=== PATIENT | male | born 1970 | race Caucasian/White ===

== ENCOUNTER 2019-07-05 22:29 | Emergency (ER) | payer BC, SELFPAY ==
--- NOTE | ~2019-07-05 | CT_ITS ---
EXAMINATION: CT abdomen pelvis wo con DATE: 07/05/2019 23:25 INDICATION: Left flank pain and nausea TECHNIQUE: Computed tomography (CT) of the abdomen and pelvis was performed without intravenous contr ast. The dose-length product was 1096.23 mGy-cm. Automated exposure control and iterative reconstruct ion technique were employed. COMPARISON: None. FINDINGS: Lung bases are unremarkable. Heart size normal. No significant pleural or pericardial effus ion. Bowel pattern is nonobstructive. No significant vascular abnormality. Small hiatal hernia. No ly mphadenopathy. 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 The liver, spleen, pancreas, adrenal glands and kidneys are unremarkable. No hydronephrosis. Bladder is unremarkable. No abnormal pelvic masses or fluid collections. Gallbladder is distended. Normal rhett endix. Mild lower lumbar spondylosis. IMPRESSION: 1. No acute abdominal abnormality. 2: Small hiatal hernia. 3: Mild infiltration of mesenteric fat with small associated lymph nodes consistent with sclerosing m esenteritis. Reviewed, dictated and finalized at location A. IMPRESSION: 1. No acute abdominal abnormality. 2: Small hiatal hernia. 3: Mild infiltration of mesenteric fat with small associated lymph nodes consis tent with sclerosing mesenteritis.
[2019-07-05 22:34] VITALS: BP 142/66; PULSE 66; RESP 22; TEMP 36.4; O2SAT 100
[2019-07-05 22:40] VITALS: BP 185/94; PULSE 90; RESP 20
--- NOTE | 2019-07-05 23:04 | ED.ABDPAIN ---
HPI - Abdominal Pain General Chief Complaint: Abdominal Pain Stated Complaint: abd pain Time Seen by Provider: 07/05/19 22:49 History of Present Illness HPI narrative: Patient is a 49-year-old male who presents ER with sudden onset left-sided abdominal pain. Unable to get comfortable. Associate with nausea. No fever/chills/sweats. Said urinary frequency but no dysuria or hematuria. Reports some discomfort earlier in the week on the left side as well that would radiate into the testicle. Has not had similar symptoms before. Related Data Allergies Allergy/AdvReac Type Severity Reaction Status Date / Time No Known Allergies Allergy Unknown Unverified 07/05/19 22:40 Review of Systems Review of Systems: All systems reviewed & are unremarkable except as noted in HPI and below Constitutional: Constitutional: Denies chills and Denies fever(s) Gastrointestinal: Gastrointestinal: Reports abdominal pain, Denies diarrhea, Reports nausea and Denies vomiting Genitourinary: Genitourinary: Denies hematuria, Denies dysuria, Reports testicular pain and Reports urinary frequency Musculoskeletal: Musculoskeletal: Denies back pain and Denies muscle cramps PMFSH Past Medical History Medical History (Updated 07/06/19 @ 01:36 by Duglas Vegas MD) Carpal tunnel syndrome Surgical History Surgical History (Updated 07/06/19 @ 01:35 by Duglas Vegas MD) No pertinent past surgical history Family History Family History (Updated 11/22/13 @ 07:13 by DOCTOR UNKNOWN) Sibling Depression Father Depression Social History Social History Smoking status: Never smoker Alcohol intake: current Gender identity (if verbalized by the patient): Male Exam Narrative: Exam Narrative: GENERAL: Uncomfortable-appearing, well-nourished, and in no acute distress. HEAD: Normocephalic, atraumatic. ENT: Mucous membranes moist. CHEST: Clear to auscultation. No respiratory distress. HEART: Regular rate and rhythm. Normal peripheral pulses. ABDOMEN: Soft, nontender, nondistended, no CVA tenderness. EXTREMITIES: Normal range of motion. No edema. NEURO: Alert and oriented x3. PSYCH: Normal mood and affect. Course Course Emergency Course: Improved significantly with Toradol more so than with morphine. Few red blood cells in urine. History and improvement with Toradol seem suspicious for recently passed kidney stone but no evidence on CT scan. Discharge home. Vital Signs Vital signs: Vital Signs Temperature 97.5 F L 07/05/19 22:34 Pulse Rate 66 07/05/19 22:34 Respiratory Rate 22 H 07/05/19 22:34 Blood Pressure 142/66 H 07/05/19 22:34 Pulse Oximetry 100 07/05/19 22:34 Temperature 97.5 F L 07/05/19 22:34 Pulse Rate 68 07/06/19 00:29 Respiratory Rate 17 07/06/19 00:29 Blood Pressure 137/73 07/06/19 00:29 Pulse Oximetry 94 07/06/19 00:29 MDM - Abdominal Pain Lab Data Result diagrams: 07/05/19 23:07 07/05/19 23:07 Labs: Lab Results 07/05/19 07/05/19 07/05/19 Range/Units 22:54 23:07 23:07 WBC Cancelled RBC Cancelled Hgb Cancelled Hct Cancelled MCV Cancelled MCH Cancelled MCHC Cancelled RDW Cancelled Plt Count Cancelled MPV Cancelled Immature Gran % (Auto) Cancelled Neut % (Auto) Cancelled Lymph % (Auto) Cancelled [place] % (Auto) Cancelled Eos % (Auto) Cancelled Baso % (Auto) Cancelled Lymph # (Auto) Cancelled [place] # (Auto) Cancelled Eos # (Auto) Cancelled Baso # (Auto) Cancelled Abs Immat Gran (auto) Cancelled Absolute Neuts (auto) Cancelled Absolute Nucleated RBC Cancelled Nucleated RBC % Cancelled % Immature Plt Fraction Cancelled Sodium 138 (137-145) mmol/L Potassium 3.6 (3.4-5.0) mmol/L Chloride 102 (98-107) mmol/L Carbon Dioxide 24 (22-30) mmol/L BUN 16 (9-20) mg/dL Creatinine 0.70 (0.7-1
[2019-07-05] MEDS: SODIUM CHLORIDE 0.9% IV 1,000 ML 999 ML IV CONT (23:09)
[2019-07-05] MEDS: MORPHINE SULFATE 4 MG/ML INJ IV PUSH (23:09)
[2019-07-05 23:13] LABS: Add Urine Microscopic? YES; Appearance Urine Clear (Clear); Bilirubin Urine Negative (Negative); Blood Urine Negative (Negative); Color Urine Yellow (Yellow); Glucose Urine UA Negative (Negative); Ketones Urine Negative (Negative); Leukocyte Esterase Ur Negative LEU/UL (Negative); Mucus Urine Rare /lpf; Nitrate Urine Negative (Negative); Protein Urine 1+ mg/dL (Negative); Squamous Epithelial Cell Urine Rare /hpf (Few); Urobilinogen Urine Negative mg/dL (<2.0); WBC Urine 0-3 /hpf
[2019-07-05 23:14] LABS: Basophils Percent Auto 0.2 % (0.2-1.2); Eosinophils Percent Auto 0.3 % (0-4.4); Hemoglobin 14.7 g/dL (14.0-18.0); Immature Granulocyte Absolute 0.05 K/mm3 (0.00-0.031); Immature Granulocyte Percent A 0.3 % (0-0.5); Lymphocytes Absolute Auto 1.37 K/mm3 (0.9-3.2); Lymphocytes Percent Auto 9.2 % (18.3-44.2); Mean Corpuscular HGB Conc 34.2 g/dl (32-36); Mean Corpuscular Hemoglobin 28.4 pg (26-34); Mean Corpuscular Volume 83.2 fl (80-100); Mean Platelet Volume 10.5 fl (7.4-10.4); Monocytes Absolute Auto 0.6 K/mm3 (0.1-0.6); Monocytes Percent Auto 4.3 % (2.6-8.5); Neutrophils Absolute Auto 12.7 K/mm3 (1.3-6.7); Neutrophils Percent Auto 85.7 % (45.5-73.1); Platelet Count Result 243 k/mm3 (150-375); Red Blood Count 5.17 M/mm3 (4.6-6.20); Red Cell Distribution Width 12.3 % (11.5-14.5); White Blood Count 14.8 K/mm3 (4.5-10.0)
[2019-07-05 23:28] LABS: Blood Urea Nitrogen 16 mg/dL (9-20); Calcium 9.2 mg/dL (8.4-10.2); Carbon Dioxide 24 mmol/L (22-30); Chloride 102 mmol/L (98-107); Estimated CRCL calculation 127 ml/min; Estimated Glomerular Filt Rate > 60; Glucose 142 mg/dL (75-110); Potassium 3.6 mmol/L (3.4-5.0); Sodium 138 mmol/L (137-145)
[2019-07-05] MEDS: KETOROLAC 30 MG/ML VIAL (*BKC) IV PUSH (23:47)
[2019-07-05] MEDS: ONDANSETRON INJ 4 MG/2 ML VIAL IV PUSH (23:47)
[2019-07-06 00:29] VITALS: BP 137/73; PULSE 68; RESP 17; O2SAT 94
[2019-07-06 01:57] VITALS: BP 142/76; PULSE 72; RESP 18; TEMP 36.7; O2SAT 97
== END 2019-07-06 01:59 | disposition home or self-care (01) ==
PROVIDERS: Emergency Provider Emergency Medicine; PCP Family Medicine
DX: R10.9 Unspecified abdominal pain (principal); K44.9 Diaphragmatic hernia without obstruction or gangrene; R93.5 Abnormal findings on diagnostic imaging of other abdominal regions, including retroperitoneum
CPT/HCPCS: 36415; 74176; 80048; 81001; 85025; 96361; 96374; 96375; 99284; J1885; J2270; J2405; J7030

== ENCOUNTER 2023-07-29 09:40 | Outpatient (CLI) | payer BC, SELFPAY ==
[2023-07-29 10:29] LABS: Alanine Aminotransferase 49 U/L (6-50); Albumin Level 4.7 g/dL (3.5-5.1); Alkaline Phosphatase 58 U/L (38-126); Anion Gap 8 mmol/L (4-12); Aspartate Amino Transferase 34 U/L (17-59); Bilirubin,Total 0.6 mg/dL (0.2-1.3); Blood Urea Nitrogen 15 mg/dL (9-20); Calcium 9.2 mg/dL (8.4-10.2); Carbon Dioxide 26 mmol/L (22-30); Chloride 102 mmol/L (98-107); Cholesterol 201 mg/dL (0-200); Estimated Glomerular Filt Rate > 60; Glucose 97 mg/dL (65-110); HDL Direct 50 mg/dL; Potassium 4.1 mmol/L (3.4-5.0); Sodium 136 mmol/L (137-145); Triglycerides 140 mg/dL (<150)
[2023-07-29 10:39] LABS: Basophils Percent Auto 0.4 % (0.2-1.2); Eosinophils Percent Auto 0.5 % (0-4.4); Hemoglobin 15.7 g/dL (14.0-18.0); Immature Granulocyte Absolute 0.02 K/mm3 (0.00-0.031); Immature Granulocyte Percent A 0.4 % (0-0.5); LDL Cholesterol Direct 123 mg/dL; Lymphocytes Absolute Auto 1.49 K/mm3 (0.9-3.2); Lymphocytes Percent Auto 26.9 % (18.3-44.2); Mean Corpuscular HGB Conc 34.1 g/dl (32-36); Mean Corpuscular Hemoglobin 29.3 pg (26-34); Mean Corpuscular Volume 85.8 fl (80-100); Mean Platelet Volume 10.4 fl (7.4-10.4); Monocytes Absolute Auto 0.5 K/mm3 (0.1-0.6); Monocytes Percent Auto 8.7 % (2.6-8.5); Neutrophils Absolute Auto 3.5 K/mm3 (1.3-6.7); Neutrophils Percent Auto 63.1 % (45.5-73.1); Platelet Count Result 225 k/mm3 (150-375); Red Blood Count 5.36 M/mm3 (4.6-6.20); Red Cell Distribution Width 12.4 % (11.5-14.5); Troponin I < 0.012 ng/mL (0.000-0.034); White Blood Count 5.5 K/mm3 (4.5-10.0)
[2023-07-29 11:16] LABS: Prostate Specific Antigen 0.5 ng/mL (< OR = 4.0)
== END 2023-07-29 09:41 | disposition home or self-care (01) ==
LOC: ANHLAB 09:42
PROVIDERS: PCP Family Medicine; Visit Provider Nurse Practitioner Adult Health
DX: I10 Essential (primary) hypertension (principal); Z13.29 Encounter for screening for other suspected endocrine disorder; Z13.220 Encounter for screening for lipoid disorders; Z12.5 Encounter for screening for malignant neoplasm of prostate
CPT/HCPCS: 36415; 80053; 80061; 84153; 84443; 84484; 85025; G0103

== ENCOUNTER 2023-07-29 13:53 | Emergency (ER) | payer BC, SELFPAY ==
[2023-07-29] VITALS (9 sets, daily range): BP systolic 168–189; BP diastolic 96–110; PULSE 56–67; RESP 14–18; TEMP 36.2–36.8; O2SAT 95–99
--- NOTE | ~2023-07-29 | XR_ITS ---
EXAMINATION: XR chest 2V DATE: 07/29/2023 15:26 INDICATION: Dizziness. TECHNIQUE: Frontal and lateral views of the chest were obtained. COMPARISON: Chest 2 views 07/01/2008 FINDINGS: A calcified right lung nodule and calcified right hilar lymph nodes are consistent with old granulomatous disease. No pleural effusion or pneumothorax. The heart size is normal. IMPRESSION: 1. No acute cardiopulmonary disease. Reviewed, dictated and finalized at location E.
--- NOTE | 2023-07-29 14:24 | ECG_ITS ---
SEE SCANNED COPY FOR CONFIRMED REPORT MTDD
--- NOTE | 2023-07-29 14:59 | ED.RECABL ---
HPI - Recheck/Abnormal Lab/Rx General Chief Complaint: Recheck/Abnormal Lab/Rx Stated Complaint: elevated bp Time Seen by Provider: 07/29/23 14:26 Source: patient Mode of arrival: ambulatory Limitations: no limitations History of Present Illness HPI narrative: Nilo is a 53-year-old male patient presenting to the emergency room today with complaints of high blood pressure and dizziness. He reports he went to his primary care doctor's office today was treated for a sinus infection and he was given a prescription for some lisinopril for hypertension. They told him if he felt any worse he should come in to be evaluated. He reports that he did take a dose of the lisinopril this morning. Started to feel lightheaded this afternoon and recheck his blood pressure and was in the 160s to 170 systolic and over 120 diastolic. This prompted him to come into the emergency room for evaluation. He denies any chest pain or associated shortness of breath. Did start antibiotics for the sinus infection. States he was taking Mucinex for his symptoms prior to seeing his primary care today. He denies any visual changes or headache. Related Data Allergies Allergy/AdvReac Type Severity Reaction Status Date / Time No Known Allergies Allergy Unknown Verified 07/29/23 14:02 Review of Systems Review of Systems: Pertinent positives per HPI. Patient denies any fever, chills, rash, headache, visual changes, cough, runny nose, sore throat, shortness of breath, chest pain, palpitations, nausea, vomiting, diarrhea, constipation, abdominal pain, or any urinary issues. PMFSH Past Medical History Medical History (Updated 07/29/23 @ 16:56 by Diego Adkins APRN) BMI 32.0-32.9,adult Carpal tunnel syndrome Hypertension Pain of left arm Screening for lipid disorders Screening for prostate cancer Screening for thyroid disorder Sinusitis Wheezing Surgical History Surgical History History of surgery on lower extremity No pertinent past surgical history Family History Family History Sibling Depression Crohn's disease Father Depression COPD (chronic obstructive pulmonary disease) Blind Mother Cancer ovarian Social History Social History Smoking status: Former smoker Second hand tobacco smoke exposure: Yes Alcohol intake: current Substance use: never Substance use type: does not use Do You Feel Safe in your Home?: Yes Lack of Transportation: No Lack of Food: Never True Current Housing: I Have Housing Concerned About Future Housing: No Difficulty Paying Gas/Electric Bills: No Difficulty Paying for Meds: No Currently Unemployed: No Education: Bachelor's Degree Difficulty w/ Childcare or Family Care: No Living arrangements: with family Occupation/Education: occupation Additional occupation/education comments: [employer] Gender identity (if verbalized by the patient): Male Comments At the time of my signature, I reviewed and agree with the nursing past medical, surgical, social, and family history. There is no relevant family history pertinent to the patient complaint. Exam Narrative: General: Well-developed, well nourished, in no apparent distress Head: Normocephalic, atraumatic Eyes: Pupils equally round and reactive to light bilaterally, EOM intact, sclera and conjunctive clear, no discharge, lids normal Ears: TMs intact and congested, ear canals clear, no drainage, grossly hearing normal. Nose: Nares patent, no discharge, no inflammation, no sinus tenderness. Mouth: Oropharynx without lesions or masses, good dentition, MMM. Neck: Supple, trachea midline, no enlargement of anterior or posterior cervical nodes, no thyroid masses or goiter palpable. Cardio: Regular rate and rh
[2023-07-29 15:01] LABS: Partial Thromboplastin Time 26.8 Seconds (22.3-36.8); Prothrombin Time 13.7 Seconds (11.1-14.7)
[2023-07-29 15:14] LABS: Troponin I < 0.012 ng/mL (0.000-0.034)
[2023-07-29] MEDS: cloNIDine HCL 0.1 MG TABLET PO (15:16)
== END 2023-07-29 17:03 | disposition home or self-care (01) ==
PROVIDERS: Emergency Medicine; Emergency Provider Nurse Practitioner Family; PCP Family Medicine
DX: R42 Dizziness and giddiness (principal); I10 Essential (primary) hypertension; Z87.891 Personal history of nicotine dependence
CPT/HCPCS: 36415; 71046; 84484; 85610; 85730; 93005; 99284; A9270

== ENCOUNTER 2023-09-14 13:43 | Outpatient (CLI) | payer BC, SELFPAY ==
--- NOTE | 2023-09-14 14:30 | NEURO_ITS ---
Impression: # Complains of numbness of hands. Non-Diabetic. # Carpal Tunnel Syndrome, right more than left. # Normal needle/EMG exam. # Clinical correlation recommended. Nerve Conduction Studies Anti Sensory Summary Table Stim Site NR Peak (ms) P-T Amp (?V) Site1 Site2 Delta-P (ms) Dist (cm) Gus (m/s) Left Median Anti Sensory (2-3nd Digit) Wrist 3.3 27.7 Wrist 2-3nd Digit 3.3 14.0 42 Wrist 3.5 39.2 Wrist 2-3nd Digit 3.3 14.0 42 Right Median Anti Sensory (2-3nd Digit) Wrist 4.0 8.2 Wrist 2-3nd Digit 4.0 14.0 35 Wrist 4.0 16.9 Wrist 2-3nd Digit 4.0 14.0 35 Left Radial Anti Sensory (Base 1st Digit) Wrist 2.0 23.8 Wrist Base 1st Digit 2.0 0.0 Right Radial Anti Sensory (Base 1st Digit) Wrist 2.1 17.5 Wrist Base 1st Digit 2.1 0.0 Left Ulnar Anti Sensory (5th Digit) Wrist 2.5 34.1 Wrist 5th Digit 2.5 14.0 56 Right Ulnar Anti Sensory (5th Digit) Wrist 2.4 19.0 Wrist 5th Digit 2.4 14.0 58 Motor Summary Table Stim Site NR Onset (ms) O-P Amp (mV) Site1 Site2 Delta-0 (ms) Dist (cm) Gus (m/s) Left Median Motor (Abd Poll Brev) Wrist 3.4 1.9 Elbow Wrist 5.0 30.0 60 Elbow 8.4 0.9 Right Median Motor (Abd Poll Brev) Wrist 4.4 3.5 Elbow Wrist 5.1 30.0 59 Elbow 9.5 3.8 Left Ulnar Motor (Abd Dig Minimi) Wrist 2.5 9.2 A Elbow Wrist 5.5 32.0 58 A Elbow 8.0 8.1 Right Ulnar Motor (Abd Dig Minimi) Wrist 2.7 7.8 A Elbow Wrist 5.7 33.0 58 A Elbow 8.4 6.7 F Wave Studies NR F-Lat (ms) L-R F-Lat (ms) Left Median (Mrkrs) (Abd Poll Brev) 29.63 0.78 Right Median (Mrkrs) (Abd Poll Brev) 30.41 0.78 Left Ulnar (Mrkrs) (Abd Dig Min) 29.22 0.16 Right Ulnar (Mrkrs) (Abd Dig Min) 29.06 0.16 EMG Side Muscle Nerve Root Ins Act Fibs Amp Dur Recrt Comment Right 1stDorInt Ulnar C8-T1 Nml Nml Nml Nml Nml Right Ext Indicis Radial (Post Int) C7-8 Nml Nml Nml Nml Nml Right Ext Digitorum Radial (Post Int) C7-8 Nml Nml Nml Nml Nml Right BrachioRad Radial C5-6 Nml Nml Nml Nml Nml Right PronatorTeres Median C6-7 Nml Nml Nml Nml Nml Right Abd Poll Brev Median C8-T1 Nml Nml Nml Nml Nml Right ABD Dig Min Ulnar C8-T1 Nml Nml Nml Nml Nml Left 1stDorInt Ulnar C8-T1 Nml Nml Nml Nml Nml Left Ext Indicis Radial (Post Int) C7-8 Nml Nml Nml Nml Nml Left Ext Digitorum Radial (Post Int) C7-8 Nml Nml Nml Nml Nml Left BrachioRad Radial C5-6 Nml Nml Nml Nml Nml Left PronatorTeres Median C6-7 Nml Nml Nml Nml Nml Left Abd Poll Brev Median C8-T1 Nml Nml Nml Nml Nml Left ABD Dig Min Ulnar C8-T1 Nml Nml Nml Nml Nml MTDD
== END 2023-09-14 13:44 | disposition home or self-care (01) ==
PROVIDERS: PCP Family Medicine; Visit Provider Nurse Practitioner Adult Health
DX: G56.03 Carpal tunnel syndrome, bilateral upper limbs (principal); G62.9 Polyneuropathy, unspecified
CPT/HCPCS: 95886; 95911

== ENCOUNTER 2024-01-12 00:40 | Day surgery (SDC) | payer BC, SELFPAY ==
[2024-01-02 15:07] VITALS: BMI 30.7
--- NOTE | 2024-01-02 15:10 | SUR.PREOP ---
Addendum entered by Michelle Gonzalez RN 01/03/24 08:23: Pt aware nothing to eat or drink after midnight, except for a small sip of water with medicine. Original Note: Report to the Outpatient Waiting Room, entrance under the green pavilion located off [facility], at time 0630 on date 01/12/24. Planned Procedure Time: 0830.? Time changes happen often and if your time is changed the preop area will call you the afternoon before. - You and your visitor will be asked to self-screen and do not enter if you have any COVID symptoms. Please call surgeon if you need to reschedule. - A mask is optional within the hospital at this time. Patients may have clear liquids (water, carbonated beverages, clear teas, apple juice) until 3 hours prior to surgery with a maximum of 20 ounces. - No food from midnight until time of surgery and no smoking - Infants may have breast milk until 4 hours before surgery, infant formula 6 hours prior to surgery. - Children will be allowed to drink immediately following surgery.? If applicable, please bring a bottle or sippy cup to assist with drinking. Juice, water, soda, and popsicles are readily available.? For infants on formula, please bring formula the day of surgery.? Pacifiers are allowed. Take only the following medications with a SIP of water on the morning of surgery: amlodipine DO NOT STOP ANY OF YOUR OTHER PRESCRIPTION MEDICATIONS PRIOR TO SURGERY EXCEPT THE FOLLOWING Medications to discontinue per physician n/a Date to take last dose Please no make-up, nail indonesian, hairspray, perfume, deodorant, or body powder the day of surgery.? No jewelry (including any body piercings) or valuables the day of surgery, leave them at home.? Please take a shower or bath the night before, or the morning of, surgery with an antibacterial soap.? Wear comfortable, loose fitting clothing.? Children are encouraged to wear pajamas. - Jewelry must be removed prior to entering the operating room.? Rings and piercings that are not removed may be cut off. - The hospital will not accept responsibility for valuables.? - Please leave all valuables, including medications, at home the day of surgery. If you are going home after surgery, a licensed emergency vehicle driver must drive you home.? - NO public transportation without another adult if you receive anesthesia. - We recommend that an adult stay with you for 24 hours following discharge. - We also recommend that you do not drive, make important decision, drink alcoholic beverages, or take any drugs that were not prescribed by your health care provider for at least 24 hours after your discharge time. For Pediatric surgeries, we recommend two adults accompany the child home. Follow any additional instructions given to you from your surgeon. Telephone instructions given to __patient___and asked if any additional questions and then verbalized understanding. Patient advised to call surgeon office or pre surgery nurse liaison [phone] if any additional questions.
--- NOTE | 2024-01-11 17:54 | WPDANESEPP ---
Anes - Eval Pre Procedure Procedure: Operation Date: 01/12/24 07:30 Proposed Procedures p Right Endoscopic Carpal Tunnel Release, Possible Open - Juliane Lyons MD Date/Time: 01/11/24 17:54 Pre Op Diagnosis: right carpal tunnel syndrome Patient Data Age: 53 Gender: M Height: 1.8 m Weight: 99.79 kg Allergies Allergy/AdvReac Type Severity Reaction Status Date / Time No Known Allergies Allergy Unknown Verified 12/12/23 14:03 Home Medications Medication Instructions Recorded Confirmed Type amlodipine 5 mg tablet 5 mg PO BID #60 tabs 09/27/23 01/02/24 Rx Patient hx anesthesia problems: none Family hx anesthesia problems: none Results Review: All pre-operative results and documents have been reviewed as part of the pre-operative evaluation. [facility] Past Medical History Medical History Anxiety Carpal tunnel syndrome Carpal tunnel syndrome, bilateral Hypertension Pain of left arm Screening for colon cancer Screening for lipid disorders Screening for prostate cancer Screening for thyroid disorder Sinusitis Wheezing Surgical History Surgical History History of surgery on lower extremity No pertinent past surgical history Family History Family History Sibling Depression Crohn's disease Father Depression COPD (chronic obstructive pulmonary disease) Blind Mother Cancer ovarian Social History Social History Smoking status: Never smoker Second hand tobacco smoke exposure: Yes Alcohol intake: current Drinks per week: 5 Substance use: never Substance use type: does not use Do You Feel Safe in your Home?: Yes Lack of Transportation: No Lack of Food: Never True Current Housing: I Have Housing Concerned About Future Housing: No Difficulty Paying Gas/Electric Bills: No Difficulty Paying for Meds: No Currently Unemployed: No Education: Bachelor's Degree Difficulty w/ Childcare or Family Care: No Living arrangements: with family Occupation/Education: occupation Additional occupation/education comments: [employer] Gender identity (if verbalized by the patient): Male Spiritual care concerns: No Exam Day of Procedure 01/11/24 17:54 Patient weight: overweight
[2024-01-12 06:20] VITALS: BP 162/101; PULSE 68; RESP 16; TEMP 36.2; O2SAT 98
[2024-01-12 06:22] VITALS: BMI 31.5
--- NOTE | 2024-01-12 06:34 | P.PNAN_ITS ---
Anes - Eval Final PreProcedure Day of Procedure 01/12/24 06:34 Patient weight: obese Heart: regular rate and rhythm Lungs: clear to auscultation Airway: Mallampati scale class II Neurological: alert and oriented Last oral intake: >/= 8 hours ASA classification: II Emergent: no Anesthetic plan: proceed Anesthesia type and monitoring: general GIVS and standard monitoring Results Review: All pre-operative results and documents have been reviewed as part of the pre- operative evaluation. Informed Consent: The patient's anesthetic plan and its attendant risks and benefits were discussed with the patient/family/POA. Questions were solicited and answers provided to the satisfaction of the patient/family/POA.
--- NOTE | 2024-01-12 06:55 | PM.HPGS ---
History of Present Illness History of Present Illness Chief complaint: right carpal tunnel syndrome Narrative: Patient seen and examined in pre-operative holding area. No interval change in medical history or symptoms. Patient recalls previous discussion of benefits and alternatives to procedure. Continues to desire to proceed with right endoscopic possible open carpal tunnel release . Reviewed procedure, post-op expectations and risks including but not limited to bleeding, infection, injury to tendon/nerve/vessel, decreased hand function, stiffness, RSD, no change or worsening of symptoms. I discussed the possible use of assistants and their participation in the case. Patient stated understanding and signed the consent form wishing to proceed. Review of Systems Review of Systems: All systems reviewed & are unremarkable except as noted in HPI and below PMFSH Past Medical History Medical History Anxiety Carpal tunnel syndrome Carpal tunnel syndrome, bilateral Hypertension Pain of left arm Screening for colon cancer Screening for lipid disorders Screening for prostate cancer Screening for thyroid disorder Sinusitis Wheezing Surgical History Surgical History History of surgery on lower extremity No pertinent past surgical history Family History Family History Sibling Depression Crohn's disease Father Depression COPD (chronic obstructive pulmonary disease) Blind Mother Cancer ovarian Social History Social History Smoking status: Never smoker Second hand tobacco smoke exposure: Yes Alcohol intake: current Drinks per week: 5 Substance use: never Substance use type: does not use Do You Feel Safe in your Home?: Yes Lack of Transportation: No Lack of Food: Never True Current Housing: I Have Housing Concerned About Future Housing: No Difficulty Paying Gas/Electric Bills: No Difficulty Paying for Meds: No Currently Unemployed: No Education: Bachelor's Degree Difficulty w/ Childcare or Family Care: No Living arrangements: with family Occupation/Education: occupation Additional occupation/education comments: [employer] Gender identity (if verbalized by the patient): Male Spiritual care concerns: No Meds Home Medications and Allergies Home Medications Medication Instructions Recorded Confirmed Type amlodipine 5 mg tablet 5 mg PO BID #60 tabs 09/27/23 01/12/24 Rx tramadol 50 mg tablet 50 mg PO Q6H PRN pain #12 tabs 01/12/24 Rx Allergies Allergy/AdvReac Type Severity Reaction Status Date / Time No Known Allergies Allergy Unknown Verified 01/12/24 06:19 Vital Signs Vital Signs - 24 hr 01/12/24 06:20 Temperature 36.2 C L Pulse Rate 68 Respiratory Rate 16 Blood Pressure 162/101 H Pulse Oximetry 98 Oxygen Delivery Room Air Exam Narrative: unchnaged Assessment and Plan Assessment and plan (1) Carpal tunnel syndrome, bilateral: Code(s): G56.03 - Carpal tunnel syndrome, bilateral upper limbs Status: Acute Assessment and Plan: cont as above
--- NOTE | 2024-01-12 06:56 | W.PM.PROC2 ---
Procedure Note - Detailed Date of Procedure 01/12/24 Pre-op Diagnosis right carpal tunnel syndrome Post-op Diagnosis Same Procedure Performed right ectr Surgeon Juliane Lyons MD Optomechanical Technician sophia houser pa-c Anesthesia MAC Description of Procedure INFORMED CONSENT: The patient was seen and examined and marked in the pre-op area.? The patient signed the consent form. PROCEDURE IN DETAIL:The patient taken back to OR on the stretcher in supine position. Time out performed with anesthesia, surgeon and staff agreeing on patient's name site and surgery to be performed SCDs were placed on the lower extremities and inflated. A tourniquet was placed on {right} upper extremity and antibiotics given IV After anesthesia administered sedation I injected {5}cc 1%lido with epi and 0.5% marcaine plain at the operative site The?{right upper extremity}?was prepped and draped in sterile fashion the??{right upper extremity} was? exsanguinated with Esmarch bandage and tourniquet inflated to 250mmHg I made a transverse incision in the {right} volar distal wrist crease through skin and dermis with 15 blade scalpel.? Littler scissors spread down to antebrachial fascia. A small incision was made in antebrachial fascia allowing access to Carpal tunnel. I proceeded with sequential dilation staying in line with the ring finger and hugging the hook of the hamate.? I then used the synovial elevator to free any adhesions from the underside of the transverse carpal ligament. Next I was able to insert the [employer] endoscopic carpal tunnel device with direct visualization of the transverse fibers on the monitor and proceeded with complete segmental retrograde release of the ligament in its entirety.? I irrigated with normal saline and closed with 4-0 monocryl for dermis and subcuticular closure. A dressing of Dermabond, 4x4, fortunato, and a volar splint was applied for patient safety, security, and comfort and secured with an janiya bandage after the tourniquet was let down noting the hand was warm and well perfused. The patient was then awaken from anesthesia and transferred to the recovery room in stable condition.? Complications - none EBL- 0cc Disposition - home in stable conditions Sophia Houser PA-C was essential for positioning, retraction, closure and dressing placement [facility] Billing Surgery - Charge Forward: Surgery Billing ([id number] for sophia)
[2024-01-12] MEDS: LACTATED RINGERS 1,000 ML 30 ML IV CONT (07:12)
[2024-01-12] MEDS: ceFAZolin 2 GM/D5W 50 ML 2 GM/50 ML BAG IVPB (07:22)
[2024-01-12] MEDS: LIDO 1%/EPINEPHRINE 1:100,000 20 ML VIAL 5 ML INFILTRATE (07:40)
[2024-01-12 07:47] VITALS: BP 127/71; PULSE 68; RESP 20
[2024-01-12 08:15] VITALS: BP 132/90; PULSE 69; RESP 20
[2024-01-12 08:45] VITALS: BP 142/91; PULSE 54; RESP 20
== END 2024-01-12 08:50 | disposition home or self-care (01) ==
PROVIDERS: PCP Family Medicine; Visit Provider Plastic Surgery
PROC: 01N54ZZ Release Median Nerve, Percutaneous Endoscopic Approach (ICD-10-PCS; CPT 29848; principal; 2024-01-12 07:30)
DX: G56.01 Carpal tunnel syndrome, right upper limb (principal); I10 Essential (primary) hypertension; F41.9 Anxiety disorder, unspecified; E66.9 Obesity, unspecified; Z68.31 Body mass index [BMI] 31.0-31.9, adult; Z79.891 Long term (current) use of opiate analgesic; Z98.890 Other specified postprocedural states; Z80.41 Family history of malignant neoplasm of ovary
CPT/HCPCS: 29848; J0690; J2003; J2004; J2250; J2405; J2704; J3010; J7120

== ENCOUNTER 2024-02-15 01:21 | Day surgery (SDC) | payer BC, SELFPAY ==
[2024-02-13 15:42] VITALS: BMI 32.1
--- NOTE | 2024-02-13 15:45 | PC.NURSE ---
Report to the Outpatient Waiting Room, entrance under the green pavilion located off [facility], at time ___10:45am____ on date _02/15/24 . Planned Procedure Time: ___12:45pm .? Time changes happen often and if your time is changed the preop area will call you the afternoon before. - You and your visitor will be asked to self-screen and do not enter if you have any COVID symptoms. Please call surgeon if you need to reschedule. - A mask is optional within the hospital at this time. Patients may have No food or drink from midnight until time of surgery and no smoking. This includes no chewing gum, candy or mints. - Take only the following medications with a SIP of water on the morning of surgery: ___Amlodipine and Metoprolol DO NOT STOP ANY OF YOUR OTHER PRESCRIPTION MEDICATIONS PRIOR TO SURGERY EXCEPT THE FOLLOWING Medications to discontinue per physician None Date to take last dose None Please no make-up, nail vincentian, hairspray, perfume, deodorant, or body powder the day of surgery.? No jewelry (including any body piercings) or valuables the day of surgery, leave them at home.? Please take a shower or bath the night before, or the morning of, surgery with an antibacterial soap.? Wear comfortable, loose fitting clothing.? - Jewelry must be removed prior to entering the operating room.? Rings and piercings that are not removed may be cut off. - The hospital will not accept responsibility for valuables.? - Please leave all valuables, including medications, at home the day of surgery. If you are going home after surgery, a licensed tier truck driver must drive you home.? - NO public transportation without another adult if you receive anesthesia. - We recommend that an adult stay with you for 24 hours following discharge. - We also recommend that you do not drive, make important decision, drink alcoholic beverages, or take any drugs that were not prescribed by your health care provider for at least 24 hours after your discharge time. Follow any additional instructions given to you from your surgeon. Telephone instructions given to __Patient and asked if any additional questions and then verbalized understanding. Patient advised to call surgeon office or pre surgery nurse liaison [phone] if any additional questions.
--- NOTE | 2024-02-15 06:57 | WPDHPUPDATE1 ---
History and Physical Update Update Date/Time: 02/15/24 06:57 Patient seen and examined in pre-operative holding area. No interval change in medical history or symptoms. Patient recalls previous discussion of benefits and alternatives to procedure. Continues to desire to proceed with left endoscopic possible open carpal tunnel release . Reviewed procedure, post-op expectations and risks including but not limited to bleeding, infection, injury to tendon/nerve/vessel, decreased hand function, stiffness, RSD, no change or worsening of symptoms. I discussed the possible use of assistants and their participation in the case. Patient stated understanding and signed the consent form wishing to proceed.
--- NOTE | 2024-02-15 06:57 | W.PM.PROC2 ---
Procedure Note - Detailed Date of Procedure 02/15/24 Pre-op Diagnosis left carpal tunnel syndrome Post-op Diagnosis Same Procedure Performed left ectr Surgeon Juliane Lyons MD [employer] sophia houser pa-c Anesthesia MAC Description of Procedure INFORMED CONSENT: The patient was seen and examined and marked in the pre-op area.? The patient signed the consent form. PROCEDURE IN DETAIL:The patient taken back to OR on the stretcher in supine position. Time out performed with anesthesia, surgeon and staff agreeing on patient's name site and surgery to be performed SCDs were placed on the lower extremities and inflated. A tourniquet was placed on {left} upper extremity and antibiotics given IV After anesthesia administered sedation I injected {5}cc 1%lido with epi and 0.5% marcaine plain at the operative site The?{left upper extremity}?was prepped and draped in sterile fashion the??{left upper extremity} was? exsanguinated with Esmarch bandage and tourniquet inflated to 250mmHg I made a transverse incision in the {left} volar distal wrist crease through skin and dermis with 15 blade scalpel.? Littler scissors spread down to antebrachial fascia. A small incision was made in antebrachial fascia allowing access to Carpal tunnel. I proceeded with sequential dilation staying in line with the ring finger and hugging the hook of the hamate.? I then used the synovial elevator to free any adhesions from the underside of the transverse carpal ligament. Next I was able to insert the Microaire endoscopic carpal tunnel device with direct visualization of the transverse fibers on the monitor and proceeded with complete segmental retrograde release of the ligament in its entirety.? I irrigated with normal saline and closed with 4-0 monocryl for dermis and subcuticular closure. A dressing of Dermabond, 4x4, fortunato, and a volar splint was applied for patient safety, security, and comfort and secured with an janiya bandage after the tourniquet was let down noting the hand was warm and well perfused. The patient was then awaken from anesthesia and transferred to the recovery room in stable condition.? Complications - none EBL- 0cc Disposition - home in stable conditions sophia Houser PA-C was essential for positioning, retraction, closure and dressing placement [facility] Billing Surgery - Charge Forward: Surgery Billing ([id number] for sophia)
[2024-02-15 09:05] VITALS: BP 175/94; PULSE 52; RESP 18; TEMP 36.2; O2SAT 100
[2024-02-15 09:40] VITALS: BMI 31.5
[2024-02-15] MEDS: LACTATED RINGERS 1,000 ML 30 ML IV CONT (09:43)
--- NOTE | 2024-02-15 09:46 | P.PNAN_ITS ---
Anes - Initial Pre Proc Eval Procedure: Operation Date: 02/15/24 12:00 Proposed Procedures p Left Endoscopic Carpal Tunnel Release, Possible Open - Juliane Lyons MD Date/Time: 02/15/24 09:46 Surgeon: Juliane Lyons MD Pre Op Diagnosis: left carpal tunnel syndrome Patient Data Age: 53 Gender: M Height: 1.8 m Weight: 102.6 kg Last Vital Signs Temp 97.2 F L 02/15/24 09:05 Pulse 52 L 02/15/24 09:05 Resp 18 02/15/24 09:05 BP 175/94 H 02/15/24 09:05 Pulse Ox 100 02/15/24 09:05 O2 Del Method Room Air 02/15/24 09:05 Allergies Allergy/AdvReac Type Severity Reaction Status Date / Time No Known Allergies Allergy Unknown Verified 02/15/24 09:27 Home Medications Medication Instructions Recorded Confirmed Type amlodipine 5 mg tablet 5 mg PO BID #60 tabs 09/27/23 02/14/24 Rx metoprolol succinate 50 mg 50 mg PO DAILY 02/13/24 02/15/24 History tablet,extended release 24 hr Patient hx anesthesia problems: none Family hx anesthesia problems: none Results Review: All pre-operative results and documents have been reviewed as part of the pre- operative evaluation. [facility] Past Medical History Medical History Anxiety Carpal tunnel syndrome Carpal tunnel syndrome, bilateral Hypertension Pain of left arm Screening for colon cancer Screening for lipid disorders Screening for prostate cancer Screening for thyroid disorder Sinusitis Wheezing Surgical History Surgical History History of surgery on lower extremity No pertinent past surgical history Family History Family History Sibling Depression Crohn's disease Father Depression COPD (chronic obstructive pulmonary disease) Blind Mother Cancer ovarian Social History Social History Smoking packs per day: 1 Smoking cigarettes per day: 20.0 Years smoked: 6 Smoking pack-years: 6.00 Smoking status: Former smoker Second hand tobacco smoke exposure: Yes Smoking end date: 03/28/94 Alcohol intake: current Drinks per week: 2 Alcohol use details: Beer Substance use: never Substance use type: does not use Do You Feel Safe in your Home?: Yes Lack of Transportation: No Lack of Food: Never True Current Housing: I Have Housing Concerned About Future Housing: No Difficulty Paying Gas/Electric Bills: No Difficulty Paying for Meds: No Currently Unemployed: No Education: Bachelor's Degree Difficulty w/ Childcare or Family Care: No Living arrangements: with family Additional living arrangements comments: Occupation/Education: occupation Additional occupation/education comments: [employer] Gender identity (if verbalized by the patient): Male Spiritual care concerns: No Anes - Eval Final PreProcedure Day of Procedure 02/15/24 09:46 Patient weight: obese Heart: regular rate and rhythm Lungs: clear to auscultation Airway: Mallampati scale class II Neurological: alert and oriented Last oral intake: >/= 8 hours ASA classification: II Emergent: no Anesthetic plan: proceed Anesthesia type and monitoring: general GIVS and standard monitoring Results Review: All pre-operative results and documents have been reviewed as part of the pre- operative evaluation. HTN. Informed Consent: The patient's anesthetic plan and its attendant risks and benefits were discussed with the patient/family/POA. Questions were solicited and answers provided to the satisfaction of the patient/family/POA.
[2024-02-15] MEDS: ceFAZolin SODIUM 1 GM VIAL 2 GM IV PUSH (10:08)
[2024-02-15] MEDS: BUPivacaine HCL 0.5% PF 30 ML VIAL 5 ML INFILTRATE (10:09)
[2024-02-15] MEDS: LIDO 1%/EPINEPHRINE 1:100,000 20 ML VIAL 10 ML INFILTRATE (10:09)
[2024-02-15 10:26] VITALS: BP 106/66; PULSE 56; RESP 16; O2SAT 95
[2024-02-15 10:56] VITALS: BP 122/79; PULSE 47; RESP 16
--- NOTE | 2024-02-15 11:23 | SUR.PHASEII ---
1110- patient dressed, ready for dc, waiting on ride.
== END 2024-02-15 11:23 | disposition home or self-care (01) ==
PROVIDERS: PCP Family Medicine; Visit Provider Plastic Surgery
PROC: 01N54ZZ Release Median Nerve, Percutaneous Endoscopic Approach (ICD-10-PCS; CPT 29848; principal; 2024-02-15 12:00)
DX: G56.02 Carpal tunnel syndrome, left upper limb (principal); I10 Essential (primary) hypertension; Z87.891 Personal history of nicotine dependence; E66.9 Obesity, unspecified; Z68.31 Body mass index [BMI] 31.0-31.9, adult
CPT/HCPCS: 29848; A9270; J0690; J2004; J2250; J3010; J7120

== ENCOUNTER 2024-06-28 00:39 | Day surgery (SDC) | payer BC, SELFPAY ==
[2024-02-13 14:55] VITALS: BMI 32.1
[2024-04-06 11:48] VITALS: BMI 30.7
[2024-06-20 10:08] VITALS: BMI 30.7
[2024-06-28 07:21] VITALS: BP 131/88; PULSE 64; RESP 16; TEMP 36.1; O2SAT 99; BMI 31.8
[2024-06-28] MEDS: LACTATED RINGERS 1,000 ML 150 ML IV CONT (07:30)
--- NOTE | 2024-06-28 07:59 | WPDANESEPPF ---
Anes - Initial Pre Proc Eval Procedure: Operation Date: 06/28/24 08:30 Proposed Procedures p Screening Colonoscopy - Kameron Mendoza MD Date/Time: 06/28/24 07:59 Surgeon: Kameron Mendoza MD Pre Op Diagnosis: Neoplasm screening Patient Data Age: 54 Gender: M Height: 1.8 m Weight: 103.7 kg Last Vital Signs Temp 96.9 F L 06/28/24 07:21 Pulse 64 06/28/24 07:21 Resp 16 06/28/24 07:21 BP 131/88 06/28/24 07:21 Pulse Ox 99 06/28/24 07:21 O2 Del Method Room Air 06/28/24 07:21 Allergies Allergy/AdvReac Type Severity Reaction Status Date / Time No Known Allergies Allergy Unknown Verified 06/28/24 07:18 Home Medications ?Medication ?Instructions ?Recorded ?Confirmed ?Type amlodipine 5 mg tablet 5 mg PO BID #60 tabs 09/27/23 06/28/24 Rx metoprolol succinate 50 mg 50 mg PO DAILY 02/13/24 06/28/24 History tablet,extended release 24 hr Patient hx anesthesia problems: none Family hx anesthesia problems: none Results Review: All pre-operative results and documents have been reviewed as part of the pre-operative evaluation. [facility] Past Medical History Medical History Anxiety Carpal tunnel syndrome Carpal tunnel syndrome, bilateral Hypertension Pain of left arm Screening for colon cancer Screening for lipid disorders Screening for prostate cancer Screening for thyroid disorder Sinusitis Wheezing Surgical History Surgical History History of surgery on lower extremity No pertinent past surgical history Family History Family History Sibling Depression Crohn's disease Father Depression COPD (chronic obstructive pulmonary disease) Blind Mother Cancer ovarian Social History Social History Smoking packs per day: 1 Smoking cigarettes per day: 20.0 Years smoked: 6 Smoking pack-years: 6.00 Smoking status: Never smoker Second hand tobacco smoke exposure: Yes Smoking end date: 03/28/94 Alcohol intake: current Drinks per week: 8 Alcohol use details: Beer Substance use: never Substance use type: does not use Do You Feel Safe in your Home?: Yes Lack of Transportation: No Lack of Food: Never True Current Housing: I Have Housing Concerned About Future Housing: No Difficulty Paying Gas/Electric Bills: No Difficulty Paying for Meds: No Currently Unemployed: No Education: Bachelor's Degree Difficulty w/ Childcare or Family Care: No Living arrangements: with family Additional living arrangements comments: with sp Occupation/Education: occupation Additional occupation/education comments: [employer] Gender identity (if verbalized by the patient): Male Spiritual care concerns: No Anes - Eval Final PreProcedure Day of Procedure 06/28/24 07:59 Patient weight: obese Heart: regular rate and rhythm Lungs: clear to auscultation Airway: Mallampati scale class II Neurological: alert and oriented Last oral intake: >/= 8 hours ASA classification: II Emergent: no Anesthetic plan: proceed Anesthesia type and monitoring: general GIVS and standard monitoring Results Review: All pre-operative results and documents have been reviewed as part of the pre-operative evaluation. Informed Consent: The patient's anesthetic plan and its attendant risks and benefits were discussed with the patient/family/POA. Questions were solicited and answers provided to the satisfaction of the patient/family/POA.
--- NOTE | 2024-06-28 08:12 | P.HP_ITS ---
History of Present Illness History of Present Illness Consent: Risks, benefits, and alternatives have been discussed and questions answered. Patient agrees to proceed with procedure. Chief complaint: Neoplasm screening Narrative: Nilo Isidro is a 54 year old male here for first screening colonoscopy Review of Systems Review of Systems: All systems reviewed & are unremarkable except as noted in HPI and below PMFSH Past Medical History Medical History Anxiety Carpal tunnel syndrome Carpal tunnel syndrome, bilateral Hypertension Pain of left arm Screening for colon cancer Screening for lipid disorders Screening for prostate cancer Screening for thyroid disorder Sinusitis Wheezing Surgical History Surgical History History of surgery on lower extremity No pertinent past surgical history Family History Family History Sibling Depression Crohn's disease Father Depression COPD (chronic obstructive pulmonary disease) Blind Mother Cancer ovarian Social History Social History Smoking packs per day: 1 Smoking cigarettes per day: 20.0 Years smoked: 6 Smoking pack-years: 6.00 Smoking status: Never smoker Second hand tobacco smoke exposure: Yes Smoking end date: 03/28/94 Alcohol intake: current Drinks per week: 8 Alcohol use details: Beer Substance use: never Substance use type: does not use Do You Feel Safe in your Home?: Yes Lack of Transportation: No Lack of Food: Never True Current Housing: I Have Housing Concerned About Future Housing: No Difficulty Paying Gas/Electric Bills: No Difficulty Paying for Meds: No Currently Unemployed: No Education: Bachelor's Degree Difficulty w/ Childcare or Family Care: No Living arrangements: with family Additional living arrangements comments: with sp Occupation/Education: occupation 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 [employer] Gender identity (if verbalized by the patient): Male Spiritual care concerns: No Meds Home Medications and Allergies Home Medications ?Medication ?Instructions ?Recorded ?Confirmed ?Type amlodipine 5 mg tablet 5 mg PO BID #60 tabs 09/27/23 06/28/24 Rx metoprolol succinate 50 mg 50 mg PO DAILY 02/13/24 06/28/24 History tablet,extended release 24 hr Allergies Allergy/AdvReac Type Severity Reaction Status Date / Time No Known Allergies Allergy Unknown Verified 06/28/24 07:18 Vital Signs Vital Signs - 24 hr 06/28/24 07:21 Temperature 96.9 F L Pulse Rate 64 Respiratory Rate 16 Blood Pressure 131/88 Pulse Oximetry 99 Oxygen Delivery Room Air Exam Const: General: comfortable and no acute distress HENMT: Face/Nose/Sinus: Normal nares present Eyes: General: appearance normal, both eyes and all related structures Neck: Neck: no JVD Resp: Auscultation: clear to auscultation bilaterally Cardio: Rate: regular rate Rhythm: regular rhythm GI: Inspection: non-distended GI Palp: Yes Soft to palpation Skin: General skin exam: normal color Neuro: Speech: normal speech Extrem: General: normal to inspection Psych: Mental Status: mental status grossly normal Assessment and Plan Assessment and plan (1) Screening for colon cancer: Code(s): Z12.11 - Encounter for screening for malignant neoplasm of colon Status: Acute Assessment and Plan: colonoscopy
[2024-06-28 08:33] VITALS: BP 110/67; PULSE 51; RESP 12; O2SAT 98
[2024-06-28 08:43] VITALS: BP 122/84; PULSE 64; RESP 13; O2SAT 99
[2024-06-28 08:53] VITALS: BP 146/89; PULSE 58; RESP 16; O2SAT 100
== END 2024-06-28 09:00 | disposition home or self-care (01) ==
PROVIDERS: PCP Family Medicine; Referring Provider Nurse Practitioner Adult Health; Visit Provider Internal Medicine Gastroenterology
PROC: 0DJD8ZZ Inspection of Lower Intestinal Tract, Via Natural or Artificial Opening Endoscopic (ICD-10-PCS; CPT 45378; principal; 2024-06-28 08:30)
DX: Z12.11 Encounter for screening for malignant neoplasm of colon (principal); D12.3 Benign neoplasm of transverse colon; K64.8 Other hemorrhoids; F41.9 Anxiety disorder, unspecified; I10 Essential (primary) hypertension; Z87.891 Personal history of nicotine dependence
CPT/HCPCS: 45385; 88305; J2003; J2704; J7120

== ENCOUNTER 2025-01-15 19:19 | Emergency (ER) | payer BC, SELFPAY ==
--- NOTE | ~2025-01-15 | XR_ITS ---
XR elbow RT 2V INDICATION: fall . COMPARISON: None. FINDINGS: AP, lateral views of the right elbow demonstrate no acute fracture or dislocation. IMPRESSION: No acute fracture or dislocation. Reviewed, dictated and finalized at location S.
--- NOTE | ~2025-01-15 | XR_ITS ---
XR heel RT min 2V INDICATION: pain COMPARISON: None FINDINGS: Two views of the calcaneus demonstrate no acute fracture or dislocation. IMPRESSION: No acute fracture or dislocation. Reviewed, dictated and finalized at location S.
--- NOTE | ~2025-01-15 | CT_ITS ---
CT brain wo con HISTORY:fall COMPARISON: None. TECHNIQUE: Axial images were obtained of the head without intravenous contrast. FINDINGS: No acute intracranial hemorrhage, mass effect or midline shift. No extra-axial fluid collections. The calvarium is intact. Visualized paranasal sinuses and mastoid air cells are clear. IMPRESSION: No acute intracranial hemorrhage or extra axial fluid collections. All CT scans at this facility are performed using low dose modulation techniques as appropriate to perform exam including the following: automated exposure control; use of iterative reconstruction technique; adjustment of the mA and/or kV according to patient size (this includes techniques or standardized protocols for targeted exams where dose is matched to indication/reason for exam). Reviewed, dictated and finalized at location S. IMPRESSION: No acute intracranial hemorrhage or extra axial fluid collections. All CT scans at this facility are performed using low dose modulation techniqu es as appropriate to perform exam including the following: automated exposure c ontrol; use of iterative reconstruction technique; adjustment of the mA and/or kV according to patient size (this includes techniques or standardized protocol s for targeted exams where dose is matched to indication/reason for exam).
--- NOTE | ~2025-01-15 | XR_ITS ---
XR chest 2V HOSTORY: dizziness, FALL FROM LADDER COMPARISON:[ None] FINDINGS: Frontal and lateral views of the chest were obtained. Groundglass opacities are present bilaterally. The heart size is normal in size. Pulmonary vasculature is unremarkable. Osseous structures are intact. IMPRESSION: Groundglass opacities are present bilaterally. [ ] Reviewed, dictated and finalized at location S.
--- NOTE | ~2025-01-15 | XR_ITS ---
XR ankle RT 2V INDICATION: fall . COMPARISON: None. FINDINGS: Frontal, lateral and oblique views of the right ankle demonstrate no acute fracture or dislocation. Lateral plate and screw fixation of the fibula is noted. There is no soft tissue swelling. No radiopaque foreign body is seen. IMPRESSION: No acute fracture or dislocation is noted in the right ankle. Reviewed, dictated and finalized at location S.
[2025-01-15 19:24] VITALS: BP 154/75; PULSE 58; RESP 18; TEMP 36.4; O2SAT 100
--- NOTE | 2025-01-15 19:38 | ECG_ITS ---
Test Date: 2025-01-15 19:52:05 Measurements Intervals [place] Rate: 57 P: 38 AR: 192 QRS: -8 QRSD: 114 T: 33 QT: 413 QTc: 404 Interpretive Statements SINUS BRADYCARDIA INCOMPLETE RIGHT BUNDLE BRANCH BLOCK DELAYED PRECORDIAL R/S TRANSITION- I, II, III, AVR, AVL, AVF, V1-V6 BORDERLINE ECG No previous ECG available for comparison Electronically Signed On 01-15-2025 20:13:12 CDT by Jim Maldonado D.O.
[2025-01-15 19:53] VITALS: PULSE 58; RESP 12; O2SAT 98
[2025-01-15 19:59] LABS: Hematocrit 43.2 % (42.0-52.0); Hemoglobin 14.3 g/dL (14.0-18.0); Immature Granulocyte Percent A 0.3 % (0-0.5); Lymphocytes Absolute Auto 1.57 K/mm3 (0.9-3.2); Mean Corpuscular HGB Conc 33.1 g/dl (32-36); Mean Corpuscular Hemoglobin 28.3 pg (26-34); Mean Corpuscular Volume 85.4 fl (80-100); Nucleated Red Blood Cells Absolute Auto 0.000 K/mm3 (0.0-0.012); Nucleated Red Blood Cells Perc 0.0 % (0.0-0.2); Platelet Count Result 239 k/mm3 (150-375); Red Blood Count 5.06 M/mm3 (4.6-6.20); White Blood Count 7.5 K/mm3 (4.5-10.0)
--- NOTE | 2025-01-15 20:15 | ED.FALL ---
HPI - Fall General Chief Complaint: Fall Stated Complaint: fell off ladder, rt elbow, rt heel, cognitive issu Time Seen by Provider: 01/15/25 20:03 History of Present Illness HPI Narrative: 54-year-old male presenting to the emergency department after a fall off of a ladder. He was only about 4 ft off the ground in his garage hanging some drywall when his ladder slipped and he fell onto his right side. He landed primarily on his right lateral heel and then onto his right elbow. Did not strike his head or lose consciousness. Does not take any blood thinners. Able to get up and ambulate. He knows that he had a laceration with some bleeding towards right elbow and then saw the blood and started feeling lightheaded and like he was going to pass out from the side of this. Did not fully lose consciousness and currently is awake alert oriented back to his baseline mentation. No headache, vision changes, neck pain, back pain. Pain is 0 at this time unless he puts pressure directly on his heel. He has a small laceration to his right elbow with bleeding controlled. No range of motion restrictions. No paresthesias. No chest pain, difficulty breathing or any bruising. No back pain or difficulty moving, no paralysis, weakness, sensory changes. Related Data Home Medications ?Medication ?Instructions ?Recorded ?Confirmed ?Last Taken ?Type metoprolol succinate 50 mg 50 mg PO DAILY 02/13/24 06/28/24 06/27/24 History tablet,extended release 24 hr Allergies Allergy/AdvReac Type Severity Reaction Status Date / Time No Known Allergies Allergy Unknown Verified 01/15/25 19:32 Review of Systems Review of Systems: As reviewed above in HPI [facility] Past Medical History Medical History Carpal tunnel syndrome, bilateral Screening for colon cancer Anxiety Screening for prostate cancer Screening for lipid disorders Screening for thyroid disorder Pain of left arm Wheezing Sinusitis Hypertension Carpal tunnel syndrome Surgical History Surgical History History of surgery on lower extremity No pertinent past surgical history Family History Family History Sibling Depression Crohn's disease Father Depression COPD (chronic obstructive pulmonary disease) Blind Mother Cancer ovarian Social History Social History Smoking packs per day: 1 Smoking cigarettes per day: 20.0 Years smoked: 6 Smoking pack-years: 6.00 Smoking status: Never smoker Second hand tobacco smoke exposure: Yes Smoking end date: 03/28/94 Alcohol intake: current Drinks per week: 8 Alcohol use details: Beer Substance use: never Substance use type: does not use Do You Feel Safe in your Home?: Yes Lack of Transportation: No Lack of Food: Never True Current Housing: I Have Housing Concerned About Future Housing: No Difficulty Paying Gas/Electric Bills: No Difficulty Paying for Meds: No Currently Unemployed: No Education: Bachelor's Degree Difficulty w/ Childcare or Family Care: No Living arrangements: with family Additional living arrangements comments: with sp Occupation/Education: occupation Additional occupation/education comments: [employer] Gender identity (if verbalized by the patient): Male Spiritual care concerns: No Exam Narrative: GENERAL: [Well-appearing, well-nourished, and in no acute distress.] HEAD: [Normocephalic, atraumatic.] EYES: [PERRLA and EOMI.] ENT: Nares clear, no rhinorrhea or epistaxis. Mucous membranes moist. NECK: Supple. CHEST: [Clear to auscultation. No respiratory distress.] HEART: [Regular rate and rhythm]. No murmur heard. [Normal peripheral pulses.] ABDOMEN: [Soft, nondistended], [nontender], [No rigidity or guarding] EXTREMITIES: Normal range of motion. no edema. No midline cervical thoracic or lumbar spinal tenderness or deformity. Ambulatory. Tenderness to the lateral aspect of the right heel direct pressure but full range of motion of the ankle and no overlying bruising. No tenderness over the mid or forefoot. Able to wiggle the toes. 3 cm laceration to the distal right arm on the posterior aspect. No exposed musculature or bone. Full range of motion of the elbow and pronation and supination without difficulty or pain. [employer] strength 5/5. Able to oppose each digit. SKIN: Warm, dry, no rash. NEURO: [No focal deficits]. Alert and oriented [x3.] PSYCH: [Normal mood and affect.] Course Vital Signs Vital signs: Vital Signs Temperature 36.4 C 01/15/25 19:24 Pulse Rate 58 L 01/15/25 19:24 Respiratory Rate 18 01/15/25 19:24 Blood Pressure 154/75 H 01/15/25 19:24 Pulse Oximetry 100 01/15/25 19:24 Temperature 36.4 C 01/15/25 19:24 Pulse Rate 56 L 01/15/25 22:23 Respiratory Rate 16 01/15/25 22:23 Blood Pressure 139/83 01/15/25 22:23 Pulse Oximetry 98 01/15/25 22:23 Oxygen Delivery Room Air 01/15/25 19:53 Procedures Laceration Laceration 1: Date: 01/15/25 Time: 22:09 Site: upper extremity Side (If applicable): right Size (cm): 3 Description: linear Depth: simple, single layer Local Anesthetic: lidocaine 1% and with epi Amount of anesthesia used (mL): 3 Pre-repair: wound explored, irrigated extensively and deep structures intact ====== Skin Level ====== Skin layer closed with: nylon Size (cm): 3-0 Number of sutures: 5 Technique: simple, interrupted ====== Subcutaneous Layer ====== ====== Muscle Layer ====== ====== Tendon Layer ====== Dressing: Non adherent dressing applied over top MDM - Fall MDM Narrative Medical decision making narrative: 54-year-old male presenting to the emergency department after a fall off of a ladder. He was only about 4 ft off the ground in his garage hanging some drywall when his ladder slipped and he fell onto his right side. He landed primarily on his right lateral heel and then onto his right elbow. Did not strike his head or lose consciousness. Does not take any blood thinners. Able to get up and ambulate. He knows that he had a laceration with some bleeding towards right elbow and then saw the blood and started feeling lightheaded and like he was going to pass out from the side of this. Did not fully lose consciousness and currently is awake alert oriented back to his baseline mentation. No headache, vision changes, neck pain, back pain. Pain is 0 at this time unless he puts pressure directly on his heel. He has a small laceration to his right elbow with bleeding controlled. No range of motion restrictions. No paresthesias. No chest pain, difficulty breathing or any bruising. No back pain or difficulty moving, no paralysis, weakness, sensory changes. Patient's examination is reassuring. He is currently awake with unremarkable vital signs and not any pain. No symptoms at this time. Normal range of motion. no edema. No midline cervical thoracic or lumbar spinal tenderness or deformity. Ambulatory. Tenderness to the lateral aspect of the right heel direct pressure but full range of motion of the ankle and no overlying bruising. No tenderness over the mid or forefoot. Able to wiggle the toes. 3 cm laceration to the distal right arm on the posterior aspect. No exposed musculature or bone. Full range of motion of the elbow and pronation and supination without difficulty or pain. [employer] strength 5/5. Able to oppose each digit. Tetanus will be updated and laceration repaired primarily at bedside. X-rays of the elbow and he will were obtained as well as CT of the head and basic laboratory studies EKG and chest x-ray given the injury. low suspicion any significant traumatic injury based on patient's overall well appearance and stable vitals. CTs unremarkable. X-rays unremarkable. X-ray does show some ground-glass opacities in his chest but he has no respiratory complaints hypoxia tachypnea or any trauma to the chest wall. Could be from remote previous infection like COVID but patient has no complaints or respiratory issues at this time. Laboratory studies EKG and remaining workup unremarkable. Remains hemodynamically stable and asymptomatic safe for discharge. Medical Records Attestation: I reviewed the patient's medical records. Lab Data Attestation: I reviewed the patient's lab results. 01/15/25 19:53 01/15/25 19:53 Labs: Lab Results 01/15/25 Range/Units 19:53 WBC 7.5 (4.5-10.0) K/mm3 RBC 5.06 (4.6-6.20) M/mm3 Hgb 14.3 (14.0-18.0) g/dL Hct 43.2 (42.0-52.0) % MCV 85.4 (80-100) fl MCH 28.3 (26-34) pg MCHC 33.1 (32-36) g/dl RDW 12.4 (11.5-14.5) % Plt Count 239 (150-375) k/mm3 MPV 9.9 (7.4-10.4) fl Immature Gran % (Auto) 0.3 (0-0.5) % Neut % (Auto) 71.2 (45.5-73.1) % Lymph % (Auto) 21.1 (18.3-44.2) % [place] % (Auto) 6.2 (2.6-8.5) % Eos % (Auto) 0.9 (0-4.4) % Baso % (Auto) 0.3 (0.2-1.2) % Lymph # (Auto) 1.57 (0.9-3.2) K/mm3 Caswell # (Auto) 0.5 (0.1-0.6) K/mm3 Eos # (Auto) 0.1 (0-0.3) K/mm3 Baso # (Auto) 0.0 (0.0-0.1) K/mm3 Abs Immat Gran (auto) 0.02 (0.00-0.031) K/mm3 Absolute Neuts (auto) 5.3 (1.3-6.7) K/mm3 Absolute Nucleated RBC 0.000 (0.0-0.012) K/mm3 Nucleated RBC % 0.0 (0.0-0.2) % Sodium 136 L (137-145) mmol/L Potassium 3.5 (3.4-5.0) mmol/L Chloride 97 L (98-107) mmol/L Carbon Dioxide 32 H (22-30) mmol/L Anion Gap 7 (4-12) mmol/L BUN 20 (9-20) mg/dL Creatinine 1.00 (0.7-1.3) mg/dL Estim Creat Clear Calc 88 ml/min Estimated GFR > 60 (59 - ) Glucose 108 (65-110) mg/dL Calcium 9.0 (8.4-10.2) mg/dL Total Bilirubin 0.4 (0.2-1.3) mg/dL AST 42 (17-59) U/L ALT 60 H (6-50) U/L Alkaline Phosphatase 48 (38-126) U/L Total Protein 7.7 (6.3-8.2) g/dL Albumin 4.4 (3.5-5.1) g/dL Imaging Data Attestation: I personally reviewed and interpreted this imaging study as follows: My impression: Impressions Head CT 01/15/25 20:30 IMPRESSION: No acute intracranial hemorrhage or extra axial fluid collections. All CT scans at this facility are performed using low dose modulation techniques as appropriate to perform exam including the following: automated exposure control; use of iterative reconstruction technique; adjustment of the mA and/or kV according to patient size (this includes techniques or standardized protocols for targeted exams where dose is matched to indication/reason for exam). Ankle X-Ray 01/15/25 20:48 IMPRESSION: No acute fracture or dislocation is noted in the right ankle. Chest X-Ray 01/15/25 20:49 IMPRESSION: Groundglass opacities are present bilaterally. [ ] Elbow X-Ray 01/15/25 20:51 IMPRESSION: No acute fracture or dislocation. Heel X-Ray 01/15/25 20:52 IMPRESSION: No acute fracture or dislocation. Discharge Plan Discharge Clinical Impression: Fall from ladder, Laceration of elbow, right, Pre-syncope, Heel pain Patient Disposition: Home Condition: Stable Instructions: Antibiotic Form, Laceration (ED), Contusion in Adults (ED) Additional Instructions: X-rays and CT scan shows no appreciable injuries. Laceration was repaired at bedside. In about 10-14 days the stitches need to come out. Please see any healthcare provider, urgent care, emergency department to have them removed. Take the antibiotics for prophylaxis given the dirty nature of the wound. No broken bones or signs of concussion. Laboratory studies are normal. Recommendations for the next 2 days or to take Tylenol and ibuprofen every 4-6 hours for some baseline pain and swelling control. Ambulate as tolerated. Change the dressings as they become soaked and at least change the once per day. Return with any signs of infection, worsening pain, bleeding or any other issues. Patient Language: Indonesian Prescriptions: New ibuprofen 800 mg tablet 800 mg PO TID PRN (Reason: pain) Qty: 30 0RF acetaminophen [Tylenol Extra Strength] 500 mg tablet 1,000 mg PO TID PRN (Reason: pain) Qty: 30 0RF cephalexin 500 mg capsule 500 mg PO Q12H 5 Days Qty: 10 0RF No Action amlodipine 5 mg tablet 5 mg PO BID Qty: 60 6RF metoprolol succinate 50 mg tablet extended release 24 hr 50 mg PO DAILY Follow-up/Referrals: Nic Burgess MD [Primary Care Provider, Family Practice]
[2025-01-15 20:30] LABS: Alanine Aminotransferase 60 U/L (6-50); Albumin Level 4.4 g/dL (3.5-5.1); Alkaline Phosphatase 48 U/L (38-126); Anion Gap 7 mmol/L (4-12); Aspartate Amino Transferase 42 U/L (17-59); Bilirubin,Total 0.4 mg/dL (0.2-1.3); Blood Urea Nitrogen 20 mg/dL (9-20); Calcium 9.0 mg/dL (8.4-10.2); Carbon Dioxide 32 mmol/L (22-30); Chloride 97 mmol/L (98-107); Estimated CRCL calculation 88 ml/min; Estimated Glomerular Filt Rate > 60; Glucose 108 mg/dL (65-110); Potassium 3.5 mmol/L (3.4-5.0); Sodium 136 mmol/L (137-145); Total Protein 7.7 g/dL (6.3-8.2)
[2025-01-15] MEDS: LIDOCAINE, EPINEPHRINE, TETRACAINE VISCOUS SOLN 3 ML TOPICAL (21:23)
[2025-01-15] MEDS: KETOROLAC 10 MG TABLET PO (22:15)
[2025-01-15] MEDS: TETANUS,DIPHTHERIA,AC PERTUSSIS ADULT (0.5 ML) BOOSTRIX IM (22:15)
[2025-01-15 22:23] VITALS: BP 139/83; PULSE 56; RESP 16; O2SAT 98
== END 2025-01-15 22:25 | disposition home or self-care (01) ==
PROVIDERS: Emergency Provider Student in an Organized Health Care Education/Training Program; PCP Family Medicine
DX: S51.011A Laceration without foreign body of right elbow, initial encounter (principal); S99.921A Unspecified injury of right foot, initial encounter; R55 Syncope and collapse; Z23 Encounter for immunization; I10 Essential (primary) hypertension; F41.9 Anxiety disorder, unspecified; Z87.891 Personal history of nicotine dependence; R00.1 Bradycardia, unspecified; I45.10 Unspecified right bundle-branch block; W11.XXXA Fall on and from ladder, initial encounter
CPT/HCPCS: 12002; 36415; 70450; 71046; 73070; 73600; 73650; 80053; 85025; 90471; 90715; 93005; 99284; A9270